=== PATIENT | female | born 1975 | race Caucasian/White ===

== ENCOUNTER 2017-05-26 18:15 | Emergency (ER) | payer OTHER ==
[2017-05-26 18:27] VITALS: BP 148/78; PULSE 88; TEMP 98; BMI 32.5
--- NOTE | 2017-05-26 18:28 | PDOC ---
Rapid Medical Evaluation Chief Complaint: Pain Time Seen by Provider: 05/26/17 18:25 Medical Evaluation: Allergies Allergy/AdvReac Type Severity Reaction Status Date / Time No Known Drug Allergies Allergy Verified 05/26/17 18:22 05/26/17 18:27 Pt presents to the ED with complaints of: midsternal cp, relieved with aleve last night but worsened today ( no meds taken today). Pain began after shoveling a few hrs later On brief exam: reproducible sternal pain Pt ordered for: ekg ( NSR) Pt to proceed to the ED Discharge Disposition - Diagnosis Chest wall pain - Discharge Dispostion Disposition: HOME Condition at time of disposition: Stable - Prescriptions Prescriptions: Diclofenac Sodium 75 mg PO BID PRN #20 tablet. PRKris Reason: Pain - Referrals Referrals: Leanna Faith MD [Primary Care Provider] - Abdirizak Alba MD [Staff Physician] - - Patient Instructions Printed Discharge Instructions: DI for Costochondritis Additional Instructions: Please take medications as prescribed. As discussed, please follow up with Drs. Faith and Anjali NEXT WEEK for further evaluation of your new chest pain. If you develop ANY new chest pain, shortness of breath, palpitations, or any new or worsening symptoms, please return to the ER. - Post Discharge Activity
[2017-05-26] MEDS ORDERED: KETOROLAC TROMETHAMINE 60 MG/2 ML VIAL IM ONE (19:26)
--- NOTE | 2017-05-26 19:28 | PDOC ---
History of Present Illness - General Chief Complaint: Pain Stated Complaint: CHEST PAIN,PAIN Time Seen by Provider: 05/26/17 18:25 - History of Present Illness Initial Comments: 05/26/17 19:22 CHIEF COMPLAINT: chest pain, SOB, back pain HISTORY OF PRESENT ILLNESS: 42 yo F with no significant PMH presents to [facility] with midsternal chest pain that began last night after shoveling snow. Patient reports "I know I'm overweight, but I'm usually very active, I have two kids, and I don't get chest pain ever from exerting myself." She reports that the pain was mostly relieved with 2 aleve last night, but when she woke up this morning she felt like "there was an elephant sitting on my chest." She reports feeling very concerned because her father from an ID at age 60 and her sister had 4 stents put in age 40. PAST MEDICAL HISTORY: Denies past medical history FAMILY HISTORY: Denies SOCIAL HISTORY: Denies tobacco, alcohol, illicit drug use. SURGICAL HISTORY: "I had my tubes tied." ALLERGIES: No known drug allergies REVIEW OF SYSTEMS General/Constitutional: Denies fever or chills. Denies weakness, weight change. HEENT: Denies change in vision. Denies ear pain or discharge. Denies sore throat. Cardiovascular: Chest pain, shortness of breath. Respiratory: Denies cough, wheezing, or hemoptysis. Gastrointestinal: Denies nausea, vomiting, diarrhea or constipation. Denies rectal bleeding. Genitourinary: Denies dysuria, frequency, or change in urination. Musculoskeletal: Back pain s/p shoveling yesterday. Skin and breasts: Denies rash or easy bruising. Neurologic: Denies headache, vertigo, loss of consciousness, or loss of sensation. PHYSICAL EXAM General Appearance: Well-appearing, appropriately dressed. No apparent distress. HEENT: EOMI, PERRLA, normal ENT inspection, normal voice, TMs normal, pharynx normal. No conjunctival pallor. No photophobia, scleral icterus. Respiratory/Chest: Lungs CTAB. Cardiovascular: RRR. S1, S2. Gastrointestinal/Abdominal: Normal bowel sounds. Abdomen soft, non-distended. No tenderness or rebound tenderness. No organomegaly, pulsatile mass, guarding , hernia, hepatomegaly, splenomegaly. Musculoskeletal/Extremities: Normal inspection. FROM of all extremities, normal capillary refill. Pelvis Stable. No CVA tenderness. No tenderness to extremities, pedal edema, swelling, erythema or deformity. Integumentary: Appropriate color, dry, warm. No cyanosis, erythema, jaundice or rash Neurologic: digital advertising specialist II-XII intact. Fully oriented, alert. Appropriate mood/affect. Motor strength 5/5. No appreciable EOM palsy, facial droop or sensory deficit. Past History - Past Medical History Allergies/Adverse Reactions: Allergies Allergy/AdvReac Type Severity Reaction Status Date / Time No Known Drug Allergies Allergy Verified 05/26/17 18:22 Home Medications: Ambulatory Orders Diclofenac Sodium 75 mg PO BID PRN #20 tablet. 05/26/17 Anemia: Yes Asthma: Yes (SEASONAL) COPD: No - Suicide/Smoking/Psychosocial Hx Smoking History: Never smoked Have you smoked in the past 12 months: No Information on smoking cessation initiated: No Hx Alcohol Use: Yes Drug/Substance Use Hx: No Substance Use Type: Alcohol *Physical Exam - Vital Signs Last Vital Signs Temp Pulse Resp BP Pulse Ox 98.0 F 88 18 148/78 100 05/26/17 18:23 05/26/17 18:23 05/26/17 18:23 05/26/17 18:23 05/26/17 18:23 Medical Decision Making - Medical Decision Making 05/26/17 19:25 42 yo F with no significant PMH presents to [facility] with midsternal chest pain that began last night after shoveling snow. Given clinical presentation, likely MSK in etiology. However given family hx of CAD, will order labs for JAVI. -CBC, CMP, trop, Mg -Toradol given for MSK pain Advised patient to take medication as prescribed and follow up with cardiology within the next week. Advised patient of signs and symptoms for return to ED. Patient verbalized understanding and agrees to plan. *DC/Admit/Observation/Transfer Diagnosis at time of Disposition: Chest wall pain - Discharge Dispostion Disposition: HOME Condition at time of disposition: Stable Admit: No - Prescriptions Prescriptions: Diclofenac Sodium 75 mg PO BID PRN #20 tablet.dr DESOUZA Reason: Pain - Referrals Referrals: Leanna Faith MD [Primary Care Provider] - Abdirizak Alba MD [Staff Physician] - - Patient Instructions Printed Discharge Instructions: DI for Costochondritis Additional Instructions: Please take medications as prescribed. As discussed, please follow up with Drs. Faith and Anjali NEXT WEEK for further evaluation of your new chest pain. If you develop ANY new chest pain, shortness of breath, palpitations, or any new or worsening symptoms, please return to the ER. - Post Discharge Activity
[2017-05-26] MEDS ORDERED: KETOROLAC TROMETHAMINE 30 MG/1 ML VIAL ONE (19:37)
[2017-05-26 19:42] LABS: BASO % 0.9 % (0-2.0); EOS % 5.6 % (0-4.5); HEMATOCRIT 40.4 % (32.4-45.2); HEMOGLOBIN 13.5 GM/dL (10.7-15.3); LYMPH % 30.8 % (8-40); MCH 28.1 pg (25.7-33.7); MCHC 33.4 g/dl (32.0-36.0); MEAN CELL VOLUME 84.2 fl (80-96); MEAN PLT VOLUME 8.8 fl (7.5-11.1); MONO % 4.6 % (3.8-10.2); NEUT % 58.1 % (42.8-82.8); PLATELET COUNT 258 K/MM3 (134-434); RDW 13.1 % (11.6-15.6); WHITE BLOOD COUNT 10.2 K/mm3 (4.0-10.0)
[2017-05-26 20:18] LABS: ALBUMIN 3.6 g/dl (3.4-5.0); ALK PHOS 86 U/L (45-117); ANION GAP 7 (8-16); BILIRUBIN,TOTAL 0.3 mg/dL (0.2-1.0); BLOOD UREA NITROGEN 9 mg/dL (7-18); CALCIUM 8.5 mg/dL (8.5-10.1); CHLORIDE 107 mmol/L (98-107); CO2 27 mmol/L (21-32); CREATININE 0.9 mg/dL (0.55-1.02); GLUCOSE,RANDOM 123 mg/dL (74-106); SGOT/AST 14 U/L (15-37); SGPT/ALT 24 U/L (12-78); SODIUM 141 mmol/L (136-145); TOT PROT 7.8 g/dl (6.4-8.2)
--- NOTE | 2017-05-27 13:29 | EKG ---
Test Reason : Blood Pressure : / mmHG Vent. Rate : 089 BPM Atrial Rate : 089 BPM P-R Int : 142 ms QRS Dur : 076 ms QT Int : 370 ms P-R-T Axes : 028 018 039 degrees QTc Int : 450 ms NORMAL SINUS RHYTHM NORMAL ECG WHEN COMPARED WITH ECG OF 21-MAR-2010 10:56, NO SIGNIFICANT CHANGE WAS FOUND Confirmed by RAMÓN HUANG MD ([id number]) on 05/27/2017 1:28:50 PM Referred By: Confirmed By:RAMÓN HUANG MD
== END 2017-05-26 21:00 | disposition home or self-care (01) ==
LOC: JERFT 18:15
PROC: 3E0233Z Introduction of Anti-inflammatory into Muscle, Percutaneous Approach (ICD-10-PCS; principal; 2017-05-26)
DX: M94.0 Chondrocostal junction syndrome [Tietze] (principal)
CPT/HCPCS: 36415; 80053; 82550; 83735; 84484; 84703; 85025; 93005; 93010; 99281-25

== ENCOUNTER 2022-02-10 09:23 | Emergency (ER) | payer BC, OTHER ==
[2022-02-10 09:32] VITALS: BP 137/82; PULSE 92; RESP 18; TEMP 98.2; BMI 37.8
[2022-02-10] MEDS ORDERED: KETOROLAC TROMETHAMINE 30 MG/1 ML VIAL IVPUSH ONE (09:35)
[2022-02-10] MEDS ORDERED: ACETAMINOPHEN 1000 MG/100 ML BAG IVPB ONE (09:36)
[2022-02-10] MEDS ORDERED: ONDANSETRON 4 MG/2 ML VIAL IVPB ONE (09:36)
[2022-02-10] MEDS ORDERED: ONDANSETRON 4 MG/2 ML VIAL ONE (09:42)
[2022-02-10] MEDS ORDERED: KETOROLAC TROMETHAMINE 30 MG/1 ML VIAL ONE (09:43)
[2022-02-10] MEDS ORDERED: ACETAMINOPHEN INJECTION 100 ML IVPB ONE (09:43)
== END 2022-02-10 11:50 | disposition home or self-care (01) ==
LOC: FER 09:23
PROC: 3E033NZ Introduction of Analgesics, Hypnotics, Sedatives into Peripheral Vein, Percutaneous Approach (ICD-10-PCS; principal; 2022-02-10)
PROC: 3E033GC Introduction of Other Therapeutic Substance into Peripheral Vein, Percutaneous Approach (ICD-10-PCS; 2022-02-10)
PROC: 3E033GC Introduction of Other Therapeutic Substance into Peripheral Vein, Percutaneous Approach (ICD-10-PCS; 2022-02-10)
PROC: 3E033GC Introduction of Other Therapeutic Substance into Peripheral Vein, Percutaneous Approach (ICD-10-PCS; 2022-02-10)
DX: G43.909 Migraine, unspecified, not intractable, without status migrainosus (principal)
CPT/HCPCS: 99284-25